=== PATIENT | female | born 1955 | race Caucasian/White ===

== ENCOUNTER → 2017-05-31 | Outpatient (CLI) | payer BC | END | disposition home or self-care (01) | LOC: RAD.S 12:30 | DX: M25.561 Pain in right knee (principal); S82.191D Other fracture of upper end of right tibia, subsequent encounter for closed fracture with routine healing; S76.111A Strain of right quadriceps muscle, fascia and tendon, initial encounter; M25.461 Effusion, right knee; R60.9 Edema, unspecified; M17.11 Unilateral primary osteoarthritis, right knee ==